=== PATIENT | male | born 1940 | race Caucasian/White ===

== ENCOUNTER 2018-01-24 09:21 | Day surgery (SDC) | payer MEDICARE ==
[~2018-01-24] VITALS: Ht 167.6 cm; Wt 81.7 kg
[~2018-01-24 09:21] MED LIST: CHLORTHALIDONE25 MG PO; MULTIVITAMINS1 EAC8 PO; VITAMIN D1000 UNI1 PO
== END 2018-01-24 11:02 | disposition home or self-care (01) ==
LOC: DS 09:21 → OPS 09:21 → DS 10:00 → OPS 10:00
PROVIDERS: Ophthalmology
PROC: 08RJ3JZ Replacement of Right Lens with Synthetic Substitute, Percutaneous Approach (ICD-10-PCS; principal; 2018-01-24 10:00)
PROC: 089230Z Drainage of Right Anterior Chamber with Drainage Device, Percutaneous Approach (ICD-10-PCS; 2018-01-24 10:00)
DX: H25.13 Age-related nuclear cataract, bilateral (principal); H40.033 Anatomical narrow angle, bilateral; H40.1311 Pigmentary glaucoma, right eye, mild stage; I10 Essential (primary) hypertension; E78.00 Pure hypercholesterolemia, unspecified; J45.909 Unspecified asthma, uncomplicated; M19.90 Unspecified osteoarthritis, unspecified site; Z98.890 Other specified postprocedural states; Z87.891 Personal history of nicotine dependence; Z79.899 Other long term (current) drug therapy
CPT/HCPCS: 0474T; 66984; C1783; J2250